=== PATIENT | male | born 1960 | race Caucasian/White ===

== ENCOUNTER 2018-09-11 16:55 | Emergency (ER) | payer BC ==
[2018-09-11 17:02] VITALS: BP 176/93; PULSE 103; RESP 18; TEMP 97.9
[2018-09-11] MEDS ORDERED: LIDOCAINE/EPINEPHR/TETRACAINE 5 ML BOTTLE TOPICAL ONE (17:05)
[2018-09-11] MEDS ORDERED: OXYMETAZOLINE 0.05% NASL SPRAY 1 SPRAY BOTTLE NASAL STA (17:05)
[2018-09-11] MEDS ORDERED: SILVER NITRATE APPLICATOR 1 EACH STICK..EA. TOPICAL STA (17:06)
--- NOTE | 2018-09-11 17:56 | ED ---
ENT HPI - General Chief complaint: ENT Stated complaint: nose bleed Time Seen by Provider: 09/11/18 17:03 Source: patient, RN notes reviewed, old records reviewed Mode of arrival: ambulatory Limitations: no limitations - History of Present Illness Initial comments: Patient is a 57-year-old male who presents emergency department today with complaints of bloody nose. Patient reports that a bleeding ulcer the past 30 minutes. Patient has had a nosebleed couple weeks ago. He works at a [employer]. This happened while he was at work. Patient states that he is currently staying in and out of hotels. - Related Data Home Medications Medication Instructions Recorded Confirmed Allopurinol [Zyloprim] 100 mg PO DAILY 09/11/18 09/11/18 Fenofibrate (Mg Unknown) 1 tab PO DAILY 09/11/18 09/11/18 Lisinopril-Hctz 10-12.5 mg 1 tab PO DAILY 09/11/18 09/11/18 [Zestoretic 10-12.5] Previous Rx's Medication Instructions Recorded Sodium Chloride [Saline Nasal 1 spray EA NOSTRIL TID #1 bottle 09/11/18 [place]] Allergies Allergy/AdvReac Type Severity Reaction Status Date / Time No Known Allergies Allergy Verified 09/11/18 17:41 Review of Systems ROS Statement: Those systems with pertinent positive or pertinent negative responses have been documented in the HPI. ROS Other: All systems not noted in ROS Statement are negative. Past Medical History Past Medical History: Hyperlipidemia, Hypertension History of Any Multi-Drug Resistant Organisms: None Reported Past Surgical History: No Surgical Hx Reported Past Psychological History: No Psychological Hx Reported Smoking Status: Never smoker Past Alcohol Use History: Daily Past Drug Use History: None Reported General Exam - General Exam Comments Initial Comments: 57-year-old male. Alert and oriented 3. No significant distress. Limitations: no limitations General appearance: alert, in no apparent distress Head exam: Present: atraumatic, normocephalic, normal inspection Eye exam: Present: normal appearance, PERRL, EOMI. Absent: scleral icterus, c onjunctival injection, periorbital swelling ENT exam: Present: normal exam, mucous membranes moist, other (Evidence of bilateral anterior nosebleed. The nosebleed has slowed on my examination.) Neck exam: Present: normal inspection. Absent: tenderness, meningismus, lymphadenopathy Respiratory exam: Present: normal lung sounds bilaterally. Absent: respiratory distress, wheezes, rales, rhonchi, stridor Cardiovascular Exam: Present: regular rate, normal rhythm, normal heart sounds. Absent: systolic murmur, diastolic murmur, rubs, gallop, clicks GI/Abdominal exam: Present: soft, normal bowel sounds. Absent: distended, tenderness, guarding, rebound, rigid Extremities exam: Present: normal inspection, full ROM, normal capillary refill, other. Absent: tenderness, pedal edema, joint swelling, calf tenderness Back exam: Present: normal inspection Neurological exam: Present: alert, oriented X3, CN II-XII intact Psychiatric exam: Present: normal affect, normal mood Skin exam: Present: warm, dry, intact, normal color. Absent: rash Course Vital Signs 09/11/18 16:59 Temperature 97.9 F Pulse Rate 103 H Respiratory 18 Rate Blood Pressure 176/93 O2 Sat by Pulse 98 Oximetry - Reevaluation(s) Reevaluation #1: 09/11/18 17:55 Patient reevaluated this time nosebleed is controlled after Afrin and lidocaine with epinephrine and clamp was removed after 20 minutes. Medical Decision Making - Medical Decision Making 57-year-old male presents sprays arms bilateral anterior nosebleed. This slowed upon my examination. However Patient did receive Afrin nasal spray and lidocaine with epinephrine, also from the nose. A clamp for 20 minutes. Nosebleeds stop and Patient was monitored in the emergency department for another 30 minutes with no further bleeding.. Discussed the importance of using humidifiers within his room and nasal saline spray. Discussed that he should have follow-up with primary care doctor and ENT specialist. Discharged with prescription for saline nasal spray. All questions answered return parameters were discussed. Disposition Clinical Impression: Nosebleed Disposition: HOME SELF-CARE Condition: Good Instructions (If sedation given, give patient instructions): Nosebleed (ED) Additional Instructions: Patient advised to take nasal saline sprays 3 times a day. Give further nosebleeds use the Afrin spray that I gave you and apply the clamp for 20 minutes. Patient should return to the emergency department if there is any further significant believes that her uncontrollable. Follow-up with ENT if symptoms continue to persist. Prescriptions: Sodium Chloride [Saline Nasal [place]] 1 spray EA NOSTRIL TID #1 bottle Is patient prescribed a controlled substance at d/c from ED?: No Referrals: None,Stated [Primary Care Provider] - 1-2 days Dimitri Cuellar DO [Doctor of Osteopathic Medicine] - 1-2 days Time of Disposition: 18:17
--- NOTE | 2018-09-12 05:04 | CDI ---
Documentation Clarification OP Dear Angie CADENA PA-C, PAC Please provide procedure done related to silver nitrate administrated. Thank you, Tylor Benz Housing Installer If you have any questions, please contact [employer] at [phone] [facility]
== END 2018-09-11 18:42 | disposition home or self-care (01) ==
LOC: EC 16:55
DX: R04.0 Epistaxis (principal); E78.5 Hyperlipidemia, unspecified; I10 Essential (primary) hypertension; Z79.899 Other long term (current) drug therapy
CPT/HCPCS: 99283